=== PATIENT | female | born 1950 | race Caucasian/White ===

== ENCOUNTER → 2017-09-16 | Outpatient (CLI) | payer OTHER ==
[2017-09-16 13:27] LABS: ESTIMATED AVERAGE GLUCOSE 120 mg/dl; HA1C FLAG Normal (Normal)
[2017-09-16 13:29] LABS: ALT/SGPT 37 U/L (12-78); AST/SGOT 24 U/L (15-37); BLOOD UREA NITROGEN 16 mg/dl (7-18); BUN/CREATININE RATIO 21.8 (10-20); CALCIUM 9.5 mg/dl (8.5-10.1); CARBON DIOXIDE 29 mmol/L (21-32); CHLORIDE 103 mmol/L (98-107); CHOLESTEROL 232 mg/dl (0-200); CREATININE 0.75 mg/dl (0.60-1.20); GLUCOSE 86 mg/dl (70-99); POTASSIUM 4.1 mmol/L (3.5-5.1); SODIUM 137 mmol/L (136-145); TRIGLYCERIDES 120 mg/dl (0-150); VERY LOW DENSITY LIPOPROT CALC 24 mg/dl
[2017-09-16 13:33] LABS: ALB/GLOB RATIO 1.1 (0.9-2); ALKALINE PHOSPHATASE 104 U/L (45-117); CHOLESTEROL/HDL RATIO 4.2; HDL CHOLESTEROL 55 mg/dl; LDL CHOLESTEROL CALCULATED 153 mg/dl
== END | disposition home or self-care (01) ==
LOC: C.LABPVFM 10:02
PROVIDERS: ATTEND Nurse Practitioner Family
DX: Z11.59 Encounter for screening for other viral diseases (principal); E78.5 Hyperlipidemia, unspecified; R73.01 Impaired fasting glucose

== ENCOUNTER → 2017-09-21 | Outpatient (CLI) | payer OTHER ==
--- NOTE | 2017-09-21 12:06 | DIAGNOSTIC IMAGING REPORT ---
SACRUM COCCYX MIN 2 VIEWS, PELVIS 1 OR 2 VIEW ROUTINE CLINICAL HISTORY: LOW BACK PAIN COMPARISON STUDY: None. FINDINGS: No fracture or dislocation within the pelvis or hips. The sacrum is intact. No suspicious osseous lesions. Soft tissues are unremarkable. Mild degenerative changes within the bilateral sacroiliac joints. No significant cartilage space narrowing within the bilateral hips for age. IMPRESSION: 1. No fracture or dislocation within the pelvis or hips. 2. Mild degenerative changes within the bilateral sacroiliac joints. Electronically signed by: Ben Ramos M.D. 09/21/2017 12:05 PM Dictated Date/Time: 09/21/2017 12:03 PM
--- NOTE | 2017-09-21 13:22 | DIAGNOSTIC IMAGING REPORT ---
THORACOLUMBAR SPINE 2 VIEWS CLINICAL HISTORY: Low back pain. FINDINGS: AP and lateral views of the thoracolumbar spine are obtained. No prior studies are available for comparison at the time of dictation. The skeletal structures are osteopenic. There is no radiographic evidence of fracture or malalignment involving the lower thoracic or lumbar spine. Vertebral body height and alignment are maintained. Anterior osteophytes are seen throughout. The transverse and spinous processes are intact as imaged. Facet arthropathy is seen in the lower lumbar region. Intervertebral disc spaces appear preserved. The visualized bony pelvis appears intact. No bowel obstruction is seen. There is moderate colonic fecal retention. IMPRESSION: 1. No acute bony abnormality is seen involving the thoracolumbar spine. 2. Osteopenia and mild spondylotic change as above. 3. Moderate constipation. Electronically signed by: Sreekanth Jones M.D. 09/21/2017 1:20 PM Dictated Date/Time: 09/21/2017 1:19 PM
== END | disposition home or self-care (01) ==
LOC: C.RADPV 11:29
PROVIDERS: ATTEND Nurse Practitioner Family
DX: M54.5 Low back pain (principal); M81.0 Age-related osteoporosis without current pathological fracture; M85.88 Other specified disorders of bone density and structure, other site; K59.00 Constipation, unspecified

== ENCOUNTER → 2017-10-12 | Outpatient (CLI) | payer OTHER ==
--- NOTE | 2017-10-13 12:47 | MAMMOGRAPHY REPORT ---
BILATERAL DIGITAL SCREENING MAMMOGRAM TOMOSYNTHESIS WITH CAD: 10/12/2017 CLINICAL HISTORY: Routine screening. Patient has no complaints. TECHNIQUE: Breast tomosynthesis in addition to standard 2D mammography was performed. Current study was also evaluated with a Computer Aided Detection (CAD) system. COMPARISON: Comparison is made to exam dated: 06/02/2015 mammogram - [facility]. Also prior outside mammograms dated 11/04/2012, 06/13/2010, 01/25/2009, 12/20/2007. BREAST COMPOSITION: There are scattered areas of fibroglandular density in both breasts. FINDINGS: There is a lobulated 11 mm mass within the right inferior breast at approximately 6:00, be st seen on the tomosynthesis images, for which spot compression tomosynthesis views and possible ru st ultrasound are recommended for further evaluation. The remainder of both breasts are stable compared to prior exams, without suspicious masses, calcific ations, or areas of architectural distortion noted. Scattered bilateral benign-appearing calcificati ons are not significantly changed. IMPRESSION: ACR BI-RADS CATEGORY 0: INCOMPLETE EVALUATION: NEED ADDITIONAL IMAGING EVALUATION Right breast mass, for which additional imaging evaluation is recommended. The patient will be luz d to schedule an appointment. Approximately 10% of breast cancers are not detected with mammography. A negative mammographic report should not delay biopsy if a clinically suggestive mass is present. Ese Hutchins M.D. ah/:10/12/2017 15:58:02 Anode Machine Operator: Maribell MARINO(Henry)(Juan José), [facility] letter sent: Addl Imaging 0 BI-RADS Code: ACR BI-RADS Category 0: Incomplete Evaluation: Need Additional Imaging Evaluation
== END | disposition home or self-care (01) ==
LOC: C.MAMM 11:55
PROVIDERS: ATTEND Nurse Practitioner Family
DX: Z12.31 Encounter for screening mammogram for malignant neoplasm of breast (principal); N63.10 Unspecified lump in the right breast, unspecified quadrant

== ENCOUNTER → 2017-10-14 | Outpatient (CLI) | payer OTHER ==
[2017-10-14 15:29] LABS: CREATININE 0.82 mg/dl (0.60-1.20)
== END | disposition home or self-care (01) ==
LOC: C.LAB1850 13:44
PROVIDERS: ATTEND Internal Medicine Rheumatology
DX: M81.0 Age-related osteoporosis without current pathological fracture (principal); E55.9 Vitamin D deficiency, unspecified; E61.8 Deficiency of other specified nutrient elements

== ENCOUNTER → 2017-10-25 | Outpatient (CLI) | payer OTHER ==
--- NOTE | 2017-10-25 14:30 | MAMMOGRAPHY REPORT ---
ULTRASOUND OF RIGHT BREAST: 10/25/2017 CLINICAL HISTORY: 67-year-old woman called back from screening mammography for a focal asymmetry in t he 6:00 middle one third of the right breast. During diagnostic evaluation the patient pointed out a n area of "puffiness" in the left axilla for which targeted left axillary ultrasound was also perform ed. COMPARISON: Comparison is made to exams dated: 10/12/2017 mammogram and 06/02/2015 mammogram - [facility]. FINDINGS: Targeted ultrasound was performed in the 6:00 right breast to assess for the 12 mm focal as ymmetry in the 6:00 middle one third of the breast. In the 6:00 axis, 1 cm from the nipple, there is a multiloculated mixed solid and cystic mass, with several prominent anechoic cystic spaces and inte rnal nonvascular echogenic material. This could represent debris or a mixed solid and cystic mass. It measures 13.8 x 4.0 x 6.3 mm. Differential considerations include a complicated cyst and papillar y lesion although DCIS cannot be completely excluded. Definitive characterization with an ultrasound -guided core needle biopsy is recommended. Targeted ultrasound was also performed in the area of visible puffiness in the left axilla. Sonograp hically normal subcutaneous tissue is identified without evidence of a suspicious solid or cystic mas s. No suspicious lymphadenopathy, focal skin thickening or drainable fluid collection is identified. A few morphologically normal lymph nodes are seen within cortices. IMPRESSION: ACR BI-RADS CATEGORY 4: SUSPICIOUS - FOLLOW-UP RECOMMENDED 1. Ultrasound-guided core needle biopsy is recommended in the 6:00 right breast for a mixed solid an d cystic versus complicated cystic mass measuring 13.8 mm, which correlates with a focal mammographic asymmetry. 2. No sonographic evidence of malignancy or suspicious lymphadenopathy in the area of puffiness poin walker out by the patient. Continued clinical follow-up is recommended. These results and recommendations were discussed with the patient at the time of the exam. She tenta tively scheduled the right breast biopsy prior to leaving our department. Amber Acosta M.D. ay/:10/25/2017 14:18:17 Inspector Plating: Dr. Amber Acosta, [facility] letter sent: Abnormal 4/5 BI-RADS Code: ACR BI-RADS Category 4: Suspicious
== END | disposition home or self-care (01) ==
LOC: C.MAMM 13:36
PROVIDERS: ATTEND Nurse Practitioner Family
DX: N63.10 Unspecified lump in the right breast, unspecified quadrant (principal)

== ENCOUNTER → 2017-11-01 | Outpatient (CLI) | payer OTHER ==
--- NOTE | 2017-11-01 10:51 | Discharge Instructions ---
Discharge Instructions Procedure Procedure Date: Nov 01, 2017. Reason for visit: Right Mass. Discharge Discharge Date: Nov 01, 2017. Discharge Diagnosis: post right 6:00 breast ultrasound guided core biopsy Instructions Activity Recommendations: Additional Limitations (see below) Return to School/Work: no limitations Recommended Home Diet: No Limitations Provider Instructions: ACTIVITY RECOMMENDATIONS: * No lifting, pushing, pulling or exercising the affected side for three days. RETURN TO SCHOOL/WORK: * You may return to work/school after the procedure, but do not perform any strenuous activities for 24 to 48 hours. MEDICATIONS: * Tylenol (two 325 mg) every four to six hours if needed for mild pain (if not allergic to Tylenol). DIET: * Resume previous diet. SPECIAL CARE INSTRUCTIONS: * Keep biopsy site dry for 24 hours. May shower after 24 hours, but do not soak (bathe) incision. * May remove Tegaderm (plastic patch) tomorrow AFTER showering. * Leave the steri-strips on for one week. Allow the steri-strips to fall off by themselves. If not off after one week, you may remove them. You may place a Bandaid crosswise over the strips, if desired. * Apply ice 10 minutes on and 10 minutes off as needed. * Wear a bra at bedtime to sleep more comfortably for 2-3 days. * Your referring physician should have the results after approximately 5 to 7 business days. * Call for unusual bleeding, fever, drainage, etc or if you have any questions call [phone] during normal business hours or after hours call Dr Acosta, . FOLLOW UP VISIT: Follow-up with Referring Physician as scheduled. [facility] Recommendations: Call your doctor if: * Temperature above 101 degrees * Pain not relieved by pain medicine ordered * There is increased drainage or redness from any incision * You have any unanswered questions or concerns. Your Doctors Instructions noted above were prepared by provider Amber Acosta. Patient Signature Section: Patient Instructions Signature Page Arleen Grayson Patient (or Guardian) Signature/Date: I have read and understand the instructions given to me by my caregivers. Caregiver/RN/Doctor Signature/Date: The above-named patient and/or guardian has received patient instructions on this date. + Original Patient Signature Page (only) stays with chart. Please make copy for patient.
--- NOTE | 2017-11-01 14:39 | MAMMOGRAPHY REPORT ---
UNILATERAL RIGHT DIGITAL DIAGNOSTIC MAMMOGRAM TOMOSYNTHESIS: 11/01/2017 CLINICAL HISTORY: Status post ultrasound-guided core biopsy of a mixed solid and cystic 13.8 mm mass versus complicated cyst in the 6:00 right breast. Please refer to the report from right breast ultrasound guided core biopsy performed at the same time for full detail. IMPRESSION: POST PROCEDURE IMAGING FOR MARKER PLACEMENT Please refer to the report from right breast ultrasound guided core biopsy performed at the same time for full detail. Approximately 10% of breast cancers are not detected with mammography. A negative mammographic report should not delay biopsy if a clinically suggestive mass is present. Amber Acosta M.D. ay/:11/01/2017 10:52:31 Attending Technologist: Maribell Horn, [facility] [employer] [place] Worker: Lissa MARINO(Henry)(M), [facility] BI-RADS Code: Post Procedure Imaging For Marker Placement
--- NOTE | 2017-11-01 14:39 | MAMMOGRAPHY REPORT ---
ULTRASOUND GUIDED BIOPSY RIGHT BREAST: 11/01/2017 CLINICAL HISTORY: 67-year-old woman presents for biopsy of a mixed solid and cystic mass versus compl icated cyst measuring 13.8 mm in the 6:00 middle one third of the right breast, thought to correlate with a mammographic mass. COMPARISON: Comparison is made to exams dated: 10/25/2017 ultrasound, 10/12/2017, 06/02/2015, 11/04/2012 , 06/13/2010, 01/25/2009, 12/20/2007 mammograms. PATIENT CONSENT: The procedure, risks and benefits were discussed with the patient and informed conse nt was obtained both verbally and in writing. Specific risks to this procedure include: bleeding, in fection, puncture of adjacent structure, nontarget biopsy, sampling error, pain, metal allergy and me dication reaction. PROCEDURE DESCRIPTION: A time out was performed and the right breast was agreed as the site of biopsy . The skin was prepped with ChloraPrep and draped in the usual sterile fashion. The mixed solid and c ystic 13.8 mm mass in the 6:00 right breast was chosen as the target for biopsy. Subcutaneous and int raparenchymal 1% buffered lidocaine, with and without epinephrine, was administered as local anesthes ia. A skin incision was made. Through the incision, 3 samples were taken with a 12 gauge [employer] Molecular [employer] sy device. The mass was less prominent after each sample, with decreased visualization of the cystic component after each sample, suggesting at least partial cystic nature. A ribbon shaped metallic ma rker was placed at the biopsy site. Hemostasis was achieved after manual compression. The patient carole erated the procedure well and there was no immediate complication. The samples were sent to the path ology department in an appropriately labeled container. Postprocedure right CC and ML tomosynthesis images were obtained. There is a new ribbon-shaped biops y marker clip in the 6:00 middle one third of the right breast, and decreased conspicuity of the prev iously observed mammographic mass in this location. No significant postbiopsy hematoma is seen. IMPRESSION: ULTRASOUND GUIDED BIOPSY Status post ultrasound-guided core biopsy of an indeterminate, partially cystic, 13.8 mm mass in the 6:00 right breast, with biopsy marker clip placed at the site. The patient will receive notification of the biopsy results from her referring physician. Amber Acosta M.D. ay/:11/01/2017 12:54:03 Director Of Critical Care: Maribell Horn, [facility]
== END | disposition home or self-care (01) ==
LOC: C.MAMM 09:40
PROVIDERS: ATTEND Nurse Practitioner Family
DX: N63.10 Unspecified lump in the right breast, unspecified quadrant (principal); N60.11 Diffuse cystic mastopathy of right breast

== ENCOUNTER → 2018-01-20 | Outpatient (CLI) | payer OTHER | END | disposition home or self-care (01) | LOC: C.PAPS 13:10 | PROVIDERS: ATTEND Nurse Practitioner Family | DX: Z01.419 Encounter for gynecological examination (general) (routine) without abnormal findings (principal) ==

== ENCOUNTER → 2018-02-02 | Outpatient (CLI) | payer OTHER | END | disposition home or self-care (01) | LOC: C.LABPVFM 10:19 | PROVIDERS: ATTEND Nurse Practitioner Family | DX: R30.0 Dysuria (principal) ==

== ENCOUNTER 2025-04-30 09:01 | Observation (INO) ==
--- NOTE | 2025-04-04 07:12 | PAT Medication Instructions ---
Medication Instructions Date of Service April 04, 2025 Home Medications Medication Instructions Recorded epinephrine 0.3 mg/0.3 mL 0.3 mg (0.3 mL) IM UD PRN 03/09/24 injection, auto-injector (EpiPen) Anaphylaxis #2 ea uphahufw-tdx-pzdne ac 400 mcg-calcium carb 500 mg-vit K1 20 mcg tablet (Women's 50 Plus Multivitamin) 1 tab PO QDL psyllium seed (sugar) oral powder (Metamucil (sugar) oral powder) 1 tbsp PO HS vit C 50 mg-E 15 unit-zinc cit 4.5 mg-lutein 2.5 mg-zeaxan chew tablet ([facility]) 1 tab PO QDL magnesium oxide 800 mg PO QDL omega-3 fatty acids 1,000 mg capsule (Fish Oil Concentrate) 2,000 mg PO QDL vitamin K2 40 mcg tablet 40 mcg PO QAM acetaminophen 325 mg capsule (Tylenol) 325 mg PO QID PRN Pain epinephrine 0.3 mg/0.3 mL injection, auto-injector (EpiPen) 0.3 mg (0.3 mL) IM UD PRN Eyepromise Restore 1 tab PO QDL Continue as directed epinephrine 0.3 mg/0.3 mL injection, auto-injector (EpiPen) 0.3 mg (0.3 mL) IM UD PRN (if needed) STOP taking 2 weeks before surgery (or as soon as possible if surgery is within 2 weeks) [facility]) 1 tab PO QDL omega-3 fatty acids 1,000 mg capsule (Fish Oil Concentrate) 2,000 mg PO QDL vitamin K2 40 mcg tablet 40 mcg PO QAM Eyepromise Restore 1 tab PO QDL DO NOT take the morning of surgery Women's 50 Plus Multivitamin) 1 tab PO QDL magnesium oxide 800 mg PO QDL Take morning of surgery With a small sip of water, OTHERWISE NOTHING TO EAT OR DRINK AFTER MIDNIGHT: acetaminophen 325 mg capsule (Tylenol) 325 mg PO QID PRN Pain (if needed) Take evening before surgery psyllium seed (sugar) oral powder (Metamucil (sugar) oral powder) 1 tbsp PO HS acetaminophen 325 mg capsule (Tylenol) 325 mg PO QID PRN Pain (if needed) Other Notes If you have any questions please call us at [phone] or [phone] or [phone] or [phone]
--- NOTE | 2025-04-11 10:15 | Anesthesiology Consultation ---
Date of Service April 11, 2025 Assessment & Plan (1) Encounter for pre-operative examination: - Infectious disease screening: Per assessment on 04/11/25- Patient was near grandson 04/09. He was asymptomatic at that time but shortly after developed hand, foot and mouth disease. No current infectious disease symptoms. Patient advised to contact surgeon/PAT if development of infectious-related symptoms prior to surgery. Nothing further needed at this time. - Outpatient joint assessment: Pt currently scheduled for inpatient pathway. If surgeon requests review for outpatient joint pathway, patient is an acceptable candidate for outpatient joint program from anesthesia standpoint pending surgeon's office assessment that patient is motivated, has good support and completes Same Day Joint Program preop requirements. - Awaiting upcoming PCP visit ([facility], appt 04/15). Patient otherwise acceptable risk for surgery. Chart Review Chart Review: Patient seen in Pre Admission Testing Teaching & Discussion Pre-Anesthesia Teaching/Discussion Notes: Instructed NPO after midnight before surgery,except medications with 15 cc of water. Medication instructions provided according to the PAT guidelines. History Surgery Operation Date: 04/30/25 07:00 Proposed Procedures p Left Total Knee Arthroplasty - Shaquille Tamayo MD Height/Weight Height: 5 ft 1 in Weight: 65.4 kg Allergies Allergy/AdvReac Type Severity Reaction Status Date / Time shellfish derived Allergy Severe Hives, Verified 04/03/25 09:33 throat swelling ciprofloxacin Allergy Intermediate Hives Verified 04/03/25 09:33 metronidazole Allergy Intermediate Hives Verified 04/03/25 09:33 animal dander Allergy Mild Sneezing Verified 04/03/25 09:33 cefuroxime Allergy Mild Hives Verified 04/03/25 09:33 iodine Allergy Mild Rash Verified 04/03/25 09:33 tree and shrub pollen Allergy Mild Sneezing Verified 04/03/25 09:33 house dust mite Allergy Unknown Sneezing Verified 04/03/25 09:33 mold Allergy Unknown Sneezing Verified 04/03/25 09:33 Medications Home Medications Medication Instructions Recorded Confirmed Last Taken tuidsgda-mdd-ltnud ac 400 1 tab PO QDL 11/08/18 04/03/25 04/13/22 18:00 mcg-calcium carb 500 mg-vit K1 20 mcg tablet (Women's 50 Plus Multivitamin) psyllium seed (sugar) oral powder 1 tbsp PO HS 0104/03/25 04/13/22 22:30 (Metamucil (sugar) oral powder) vit C 50 mg-E 15 unit-zinc cit 4.5 1 tab PO QDL 11/08/18 04/03/25 04/13/22 18:00 mg-lutein 2.5 mg-zeaxan chew tablet ([facility]) magnesium oxide 800 mg PO QDL 04/28/19 04/03/25 04/13/22 18:00 omega-3 fatty acids 1,000 mg 2,000 mg PO QDL 04/28/19 04/03/25 06/20/19 capsule (Fish Oil Concentrate) vitamin K2 40 mcg tablet 40 mcg PO QAM 09/12/19 04/03/25 04/13/22 18:00 acetaminophen 325 mg capsule 325 mg PO QID PRN Pain 04/14/22 04/03/25 04/12/22 (Tylenol) epinephrine 0.3 mg/0.3 mL 0.3 mg (0.3 mL) IM UD PRN 03/09/24 04/03/25 Unknown injection, auto-injector (EpiPen) Anaphylaxis #2 ea Eyepromise Restore 1 tab PO QDL 04/03/25 04/03/25 Unknown Past Medical History Medical History Asthma Allergy induced, no inhaler Benign paroxysmal positional vertigo "If too much caffeine" Diverticular disease Hearing deficit Hyperlipidemia Osteoarthritis Osteoporosis Prediabetes Tinnitus of both ears Exercise / Class Metabolic Activity II 4-5 Yardwork/Stairs/Walk up hill (one FS: No CP, no SOB) Past Family History Family History Father Family history of diabetes mellitus Prostate cancer Heart disease Grandfather (Paternal) Colorectal cancer Mother Myocardial infarction Brother Diabetes Other No family history of adverse response to anesthesia Denies family history of Ovarian cancer Breast cancer Past Surgical History Surgical History History of carpal tunnel surgery of left wrist History of section History of colonoscopy History of dilatation and curettage History of gynecologic surgery D&E History of right breast biopsy "Benign" History of tooth extraction History of wisdom tooth extraction Status post laparoscopic cholecystectomy Robotic assisted lap cholecystectomy (04/14/2022): Grade 3 view, Glidescope#3, ETT 7.0 at [facility] Past Anesthesia History No Hx of Anesthesia Complications and No Family Hx of Anesthesia Complications History of PONV No Hx of PONV and No Hx of Motion Sickness Social History Smoking Status: Never smoker Do You Dip or Chew Tobacco: No Hx Alcohol Use: Yes Alcohol type: wine alcohol intake frequency: holidays/special occasions only Hx Substance Use: No substance use type: does not use Review of Systems Patient denies chest pain, shortness of breath, dyspnea on exertion, fever, chills, cough, wheezing, palpitations. Physical Exam Vital Signs BP 143/76 P 75 TEMP 97.9 SP02 98%RA RESP 16 Physical Decreased cervical extension range of motion. Full TMJ range of motion. TMD 3 finger breaths Mallampati Score I Dentition: intact, + caps/crowns (sides/molars) Lungs: clear throughout to auscultation Cardiac: regular rate and rhythm, no murmurs noted Spine: normal Carotid arteries: negative bruit Extremities: no LE edema Lab Results Anesthesia Preop Results Results Anesthesia Widget: WBC 4.95 K/ul (4.8-10.8) 04/11/25 Hgb 12.1 g/dl (12.0-16.0) 04/11/25 Hct 37.2 % (37.0-47.0) 04/11/25 Plt 238 K/uL (130-400) 04/11/25 Na 141 mmol/L (136-145) 04/11/25 K 4.0 mmol/L (3.5-5.1) 04/11/25 Cl 106 mmol/L (98-107) 04/11/25 CO2 30 mmol/L (21-32) 04/11/25 BUN 16 mg/dl (6-23) 04/11/25 Creat 0.81 mg/dl (0.6-1.2) 04/11/25 Glucose Level 77 mg/dl (70-99(Fasting)) 04/11/25 PT 10.6 Seconds (9.0-12.0) 04/11/25 PTT 29 Seconds (21-31) 04/11/25 INR 1.0 (0.9-1.1) 04/11/25 Blood Type A Positive 04/11/25 Antibody Screen NEGATIVE 04/11/25 Testing Electrocardiogram Date: 04/11/25 NSR at 71bpm. "Normal ECG" Chest X-Ray Date: 04/11/25 FINDINGS: Heart size and pulmonary vasculature normal. No consolidation or pleural effusion. IMPRESSION: No acute findings.
[~2025-04-30 09:01] MED LIST: BUPIVACAINE 0.25% PF 30 ML VIAL ONE; BUPIVACAINE 0.5 % 5 MG/1 ML PF 10ML VIAL ONE; MIDAZOLAM HCL 1 MG/ML 2ML VIAL ONE
[2025-04-30] MEDS ORDERED: ATROPINE SULFATE 0.1 MG/ML 10ML SYR IV PRN (09:12)
[2025-04-30] MEDS ORDERED: ONDANSETRON INJ 2 MG/ML 2 ML VIAL IV PRN ×2 (09:12→14:09)
[2025-04-30] MEDS: dexAMETHasone**PF** 10 MG/ML VIAL IV SCH (09:26)
[2025-04-30] MEDS: METOCLOPRAMIDE HCL 10 MG TABLET PO SCH (09:26)
[2025-04-30] MEDS: FAMOTIDINE 20 MG TAB PO SCH (09:27)
[2025-04-30] MEDS: LR 500ML BOLUS, THEN 15ML/HR IV SCH (09:27)
[2025-04-30] MEDS: CeleBREX 200 MG CAP PO SCH (09:27)
[2025-04-30] MEDS: LR 60ML/HR IV SCH (09:27)
[2025-04-30] MEDS: ACETAMINOPHEN 500 MG TAB PO SCH ×2 (09:27→14:18)
--- NOTE | 2025-04-30 10:41 | History & Physical Bridge Note ---
Date of Service April 30, 2025 History & Physical Bridge Note I have examined the patient, reviewed the History & Physical and in the interval since the performance of the History & Physical I have noted the following changes of clinical significance: no changes noted
[2025-04-30] MEDS ORDERED: PROPOFOL IV EMULSION 10 MG/ML 100 ML VIAL IV ONE (11:02)
[2025-04-30] MEDS: ORTHO JOINT ANESTHETIC ONE (11:47)
[2025-04-30] MEDS: ROPIV 0.5% 246mg, Ketorolac 30mg, EPINEPHrine 0.5mg in NSS INFIL SCH (11:59)
--- NOTE | 2025-04-30 12:41 | Operative Report ---
PG Post Operative Report Pre & Post Diagnosis Operation Date: 04/30/25 10:40 Pre-Op Diagnosis: Left Knee degenerative joint disease Post-Op Diagnosis: Left Knee degenerative joint disease I identified the patient and participated in the time-out.: Yes Procedure Operation Date: 04/30/25 10:40 Actual Procedures p Left Total Knee Arthroplasty(Left) - Shaquille Tamayo MD Surgeon Shaquille Tamayo MD Mechanical Design Engineer [employer] Charles Shaw PA-C Estimated Blood Loss 50 Findings Consistent with Post-Op Diagnosis Specimens Left knee sent for pathology. Anesthesia Type Spinal MAC Complications none Indications Patient is a 75-year-old female with IBS every history of increasing left knee pain discomfort is gotten worse over time. She failed conservative measures. X-rays show advanced medial compartment arthritis. She would like to proceed with total knee arthroplasty. Description of Procedure Operative implants consists of: 1 Biomet Vanguard size 65 left posterior stabilized femoral component. 2. Biomet size 67 tibial tray. 3. 10 mm posterior stabilized polyethylene insert. 4. 31 x 8 all poly patella. The patient was taken to the op room, identified, placed on the operating table in the supine position. All conductors were appropriately padded. IV antibiotics fibra anesthesia team. Spinal anesthetic and been implemented in the holding area. A Elizabeth catheter was placed in sterile fashion. A left Mcdavid was then placed in the left lower extremity was then prepped and draped in usual sterile fashion. The left leg was elevated exsanguinated with use of an Esmarch and torse placed at 300 mmHg. An anterior approach of the left knee was then performed to longitudinal incision centered over the patella. Sharp dissection was carried through subcutaneous tissue down to the extensor mechanism. A medial parapatellar arthrotomy incision was made. Some subperiosteal dissection was carried out medially. The fat pad was dissected through the patella tendon. The patellofemoral ligament was released. Patella subluxated laterally knee was flexed. The osteophytes taken off distal femur. The ACL and PCL were then released from the distal femur and the tibia subluxated anteriorly. The external treatment LYMErix then placed on the anterior face of the tibia and adjusted 14 mm medially. The proximal tibial cut was made removed to 3 mm of bone from the medial side. Tibia sized to a size 67. Attention drawn the femur. The distal femur examined the sharp drill. Intramedullary canal was suction. A left 5 degree valgus cutting guide was placed. The distal femoral cutting block was pinned in place. The distal femoral cut was made to take an additional 3 mm of bone off distal femur. The femur was then sized to a size 65. The AP cutting block was then parallel to the epicondylar axis which was 3 degrees of external rotation. Anterior cut, anterior chamfer, posterior cut, posterior chamfer cuts were made. The box cutting guide was placed and just slight lateral and the box cut was made. The knee was flexed. The remnants of the medial and lateral menisci were excised. The osteophytes taken off the posterior aspect of femur. Trial femoral component was placed. The tibial tray was pinned in Francheska external rotation and the drill and stem punch used to create defect in the proximal tibia for the tibial tray. The knee was then trialed and the 10 mm insert fit most appropriately. Attention drawn the patella. The patella was cleaned of all soft tissue. Patella thickness measured 21 mm in thickness was cut down to 14. Was sized to a size 31 patella. The lug holes were drilled for 31 patella. The lateral osteophytes removed. Patella button was placed. Knee was taken through range of motion patella tracked nicely with no thumbs test. Attention then drawn to placement permanent components. NuPrep all trial components were removed. Bone plug was placed into the distal femur limit blood loss. A double batch of Palacos G cement was mixed. Biomet Vangua rd size 65 left posterior stabilized femoral component, size 67 tibial tray, a 10 mm posterior stabilized polyethylene insert, and 31 x 8 all poly patella and then cemented in place. Knee was brought out into full extension till cement hardened. Final cement check was then performed. The pericapsular tissues were injected with total 100 cc of Ortho mix. Patient did receive 1 g of tranexamic acid. The tourniquet was then let down for final tourniquet time of 57 minutes. Hemostasis carriages electrocautery. Extensor Meclomen closed with combination 1 PDS suture #1 Vicryl suture in [id number] fashion. Extensor Meclomen checked found to be intact with subcutaneous tissue then closed with 2 Dexon suture in a buried erupted fashion skin was closed skin julisa. Leg was then cleaned and dried and a sterile dressing with Xeroform, 4 fours, sterile cast padding, Scott bandage were applied. Patient then transferred to the recovery room in stable condition. Patient tolerated procedure well and there were no complications. Charles Shaw, my physician medical lab assistant, was present for the entire procedure. His assistance was required for proper patient positioning, prepping and drapin g, surgical exposure, retraction, perform the technical details of the operation, placement of the implants, closure of the incision site, and placement of postoperative sterile bandage. I attest to the content of the Intraoperative Record and any orders documented therein. Any exceptions are noted below.
--- NOTE | 2025-04-30 13:04 | XRay Report ---
XR knee LT 1 or 2V routine CLINICAL HISTORY: Surgical Post Op COMPARISON: None FINDINGS: Left knee prosthesis shows no hardware complication. There is expected soft tissue gas. Sk in julisa are present. IMPRESSION: Unremarkable postoperative exam. ACT 112: Negative or not required by law. Electronically signed by: Hill Swanson M.D. 04/30/2025 1:03 PM
[2025-04-30] MEDS ORDERED: METOCLOPRAMIDE HCL INJ 5 MG/ML 2 ML VIAL IV PRN (14:09)
[2025-04-30] MEDS ORDERED: GLUCAGON FOR INJ 1 MG VIAL SQ PRN (14:09)
[2025-04-30] MEDS ORDERED: ALUMINUM/MAGNESIUM SUSP 30 ML UDC PO PRN (14:09)
[2025-04-30] MEDS ORDERED: PHARMACY GLYCEMIC MGMT CONSULT PRN (14:09)
[2025-04-30] MEDS ORDERED: MAGNESIUM HYDROXIDE SUSP 30 ML UDC PO PRN (14:09)
[2025-04-30] MEDS ORDERED: GLUCOSE 40% GEL 15 GM TUBE PO PRN (14:09)
[2025-04-30] MEDS ORDERED: GLUCOSE 10 TAB/TUBE PO PRN (14:09)
[2025-04-30] MEDS ORDERED: DEXTROSE 50% 50 ML SYRINGE IV PRN (14:09)
[2025-04-30] MEDS ORDERED: HYDROmorphone INJ 0.5 MG/0.5 ML SYR IV PRN (14:09)
[2025-04-30] MEDS ORDERED: NALOXONE HCL 0.4 MG/1 ML VIAL/CARP IV PRN (14:09)
[2025-04-30] MEDS ORDERED: CARBOHYDRATES FOR HYPOGLYCEMIA PO PRN (14:09)
[2025-04-30] MEDS: SODIUM CHLORIDE 0.9% 1,000 ML IV SCH (14:18)
[2025-04-30] MEDS: KETOROLAC TROMETHAMINE 15 MG/ML VIAL IV SCH (14:18)
[2025-04-30] MEDS ORDERED: EPINEPHrine INJ 1 MG/ML AMP IM PRN (14:21)
--- NOTE | 2025-04-30 14:24 | Anesthesiology Progress Note ---
Date of Service April 30, 2025 Anesthesia Post Procedure Vital Signs Vital Signs: Temp Pulse Pulse Resp BP Pulse Ox O2 Del Method 04/30/25 14:09 36.5 C 16 L 16 118/59 L 100 Room Air 04/30/25 13:30 36.4 C L 74 15 129/58 L 100 Room Air 04/30/25 13:20 74 15 132/57 L 97 Room Air 04/30/25 13:10 71 14 122/60 98 Room Air 04/30/25 13:00 75 12 125/54 L 100 Room Air 04/30/25 12:50 71 14 121/54 L 100 Oxymask 04/30/25 12:42 36.1 C L 74 14 122/53 L 100 Oxymask 04/30/25 09:24 36.6 C 70 20 170/64 H 99 Room Air O2 Flow Rate 04/30/25 14:09 04/30/25 13:30 04/30/25 13:20 04/30/25 13:10 04/30/25 13:00 04/30/25 12:50 5 04/30/25 12:42 5 04/30/25 09:24 Pain Intensity Left Knee: Pain Intensity: 0 Transfer of Care Handoff Completed per policy Notes Mental Status: alert / awake / arousable Patient Amnestic to Procedure: Yes Nausea / Vomiting: adequately controlled Pain: adequately controlled Airway Patency, RR, SpO2: stable & adequate BP & HR: stable & adequate Hydration State: stable & adequate Neuraxial Anesthesia: was administered and sensory block is resolving Anesthetic Complications: no major complications apparent and Pt Satisfied with anesthetic care
--- NOTE | 2025-04-30 14:49 | Pharmacy Report ---
Pharmacy Glycemic Short Note 2 - Date of Service April 30, 2025 - Glycemic Short BSG Results (Last 24 hours): 04/30/25 09:37 POC Glucose 90 OUTPATIENT ANTIDIABETIC REGIMEN: * n/a HbA1c: 5.8% (09/24/24) ASSESSMENT: * NW is a 75 year old female POD #0 s/p left total knee arthroplasty * Patient is prediabetic and not on antidiabetic medications as an outpatient * Preop blood sugar of 90 mg/dL * Received dexamethasone 10 mg IV x 1 in OR and is ordered one-time dexamethasone 10 mg IV dose tomorrow AM * Will treat conservatively given current blood sugar and prediabetes only PLAN FOR INPATIENT GLYCEMIC CONTROL: * Basal insulin * Hold * Bolus insulin * NovoLog per scale ACHS or Q6hrs while NPO * Goal Range: Low 120 mg/dL - High 160 mg/dL * Correction Factor: 45 mg/dL/unit * Nutritional / Prandial insulin per carb ratio of 1 unit per 20 grams CHO consumed
[2025-04-30] MEDS: INSULIN ASPART PER UNIT CHARGE SC SCH (16:54)
[2025-04-30] MEDS: ASCORBIC ACID 500 MG TAB PO SCH (16:59)
[2025-04-30] MEDS: TRANEXAMIC ACID / 0.7% NACL 1,000 MG/100 ML BAG IV SCH (17:48)
[2025-04-30] MEDS: PSYLLIUM HUSK 4GM PACKET PO SCH (20:52)
[2025-04-30] MEDS: SENNA 8.6 MG TAB PO SCH (20:52)
[2025-04-30] MEDS: DOCUSATE SODIUM 100 MG CAP PO SCH (20:52)
[2025-04-30] MEDS: ASPIRIN 81 MG ECTAB PO SCH (20:53)
[2025-04-30] MEDS ORDERED: SENNA 8.6 MG TAB PO SCH (21:00)
[2025-05-01 06:05] LABS: Hematocrit (blood only) 32.2 % (37.0-47.0); Hemoglobin 11.0 g/dl (12.0-16.0); Mean Corpuscular Hemoglobin 31.2 pg (25.0-34.0); Mean Corpuscular Volume 91.2 fL (80.0-100.0); Platelet Count 216 K/uL (130-400); RDW Standard Deviation 41.7 fL (36.4-46.3); Red Blood Count 3.53 M/uL (4.20-5.40); White Blood Count 14.67 K/ul (4.8-10.8)
[2025-05-01 06:22] LABS: Anion Gap 7.0 (3-11); Blood Urea Nitrogen 18.0 mg/dl (6-23); Calcium 8.9 mg/dl (8.6-10.3); Carbon Dioxide 24.0 mmol/L (21-32); Chloride 108.0 mmol/L (98-107); Creatinine Clr Calc Pharmacy 48.5 ml/min; Glucose 111.0 mg/dl (70-99(Fasting)); Potassium 4.2 mmol/L (3.5-5.1); Sodium 139.0 mmol/L (136-145)
[2025-05-01] MEDS: CEROVITE ADV FORMULA TAB PO SCH (07:45)
[2025-05-01] MEDS: dexAMETHasone 10 MG in SYRINGE 0 ML IV SCH (07:45)
[2025-05-01 08:52] VITALS: PULSE 80
[2025-05-01] MEDS ORDERED: [UNRECOGNIZED DRUG - OTHER] PO SCH (11:30)
[2025-05-01] MEDS ORDERED: NON-FORMULARY MEDICATION (Vit C-E-Zinc Cit-Lutein-Zeaxan [Ocuvite Eye Health] 50 mg-15 uni PO SCH (11:30)
--- NOTE | 2025-05-01 11:41 | Orthopedic Progress Note ---
Date of Service May 01, 2025 Assessment & Plan (1) Status post left knee replacement: Plan: 75-year-old female postop day 1 from a left knee replacement doing pretty well. Pain is controlled. She is neurologically intact. Plan: 1. DVT prophylaxis including Thiede teds, SCDs, aspirin twice a day. 2. PT/OT. Weight-bear as tolerated left total knee protocol. 3. Pain control. Doing well with current pain regimen. 4. Disposition. Plan to discharge to home with some home health if she does okay in therapy today. (2) Hyperlipidemia: (3) Pre-diabetes: Admission and Anticipated Discharge Date Admission Date: April 30, 2025 Subjective 75-year-old female postop day 1 from a left knee replacement. She is doing pretty well. Pains controlled. No chest pain or shortness of breath. Not feeling dizzy or lightheaded. Physical Exam Physical Exam: Physical nation was a pleasant elderly female. She is lying in bed working with her therapist when I visited her. Examination of the left leg reveals the dressing be clean dry and intact. She can dorsiflex and plantarflex her foot appropriately. She can do a good straight leg raise. Respiratory: normal respiratory effort, lungs clear to auscultation Cardiovascular: RRR, no murmur, no edema Gastrointestinal (Abdomen): normal bowel sounds, soft, nontender, no hepatosplenomegaly Results & Data Vital Signs (Past 12 Hours) Vital Signs Temp Pulse Pulse Resp BP Pulse Ox O2 Del Method 05/01/25 11:26 36.5 C 80 79 20 152/60 H 98 05/01/25 08:49 36.5 C 80 79 20 152/60 H 98 Room Air 05/01/25 03:00 36.7 C 71 20 144/67 H 96 Room Air (2) Hyperlipidemia Hyperlipidemia type: pure hypercholesterolemia Qualified Code(s): E78.00 - Pure hypercholesterolemia, unspecified
[2025-05-01 11:42] VITALS: BP 128/68; RESP 18; TEMP 98.1; O2SAT 99
[2025-05-01] MEDS: OMEGA-3 (PURIFIED FISH OIL) 1 GM CAP PO SCH (11:55)
[2025-05-01] MEDS: MAGNESIUM OXIDE 400 MG TAB PO SCH (11:55)
== END 2025-05-01 12:38 | disposition home health service (06) ==
LOC: ASU 09:01 → 3E 09:01